=== PATIENT | female | born 1930 | race Caucasian/White ===

== ENCOUNTER 2016-12-11 15:15 | Outpatient (CLI) | payer MEDICARE ==
[~2016-12-11 15:15] MED LIST: AMLO5TAB PO; AMLODIPINE10 MG PO; BENADRYL 25MG C25 MG PO; BYSTOLIC10 MG PO; CALCITRIOL 00.25 MCG PO; CALCIUM CARBON600 MG PO; CITALOPRAM10 MG PO; DIOVAN160 MG PO; DIOVAN320 MG PO; DIOVAN40 MG PO; DOXAZOSIN4 MG PO; FUROSEMIDE40 MG PO; KAPIDEX60 MG PO; LIPITOR40 MG PO; MEDI-FIRST NON325 MG PO; OCUVITE LUTEIN1 CA1 PO; TYLENOL 8 HOUR650 MG PO; VITAMIN D 90 MG1 TA1 PO; VITAMIN D31000 IU PO; VITAMIN D50000 I1 PO
[2016-12-11 15:53] LABS: HEMOGLOBIN 9.4 g/dL (12.2-16.2)
[2016-12-11 16:10] VITALS: BP 160/58
[2016-12-11 17:46] LABS: GFR (ESTIMATED) 15 ML/MIN (59-)
[2016-12-13 06:38] LABS: Iron 67 ug/dL (27-139); Iron Saturation 31 % (15-55); UIBC 150 ug/dL (118-369)
== END 2016-12-11 16:24 | disposition home or self-care (01) ==
LOC: COP 15:15
PROVIDERS: Hospitalist
DX: N18.4 Chronic kidney disease, stage 4 (severe) (principal); D63.1 Anemia in chronic kidney disease
CPT/HCPCS: J0885

== ENCOUNTER → 2017-01-01 | Outpatient (CLI) | payer MEDICARE ==
[2017-01-01 15:30] VITALS: BP 163/70
[2017-01-01 15:40] LABS: GFR (ESTIMATED) 12 ML/MIN (59-)
== END ==
LOC: COP 15:00
PROVIDERS: Hospitalist
DX: N18.4 Chronic kidney disease, stage 4 (severe) (principal); D63.1 Anemia in chronic kidney disease
CPT/HCPCS: J0885

== ENCOUNTER 2017-01-27 15:14 | Outpatient (CLI) | payer MEDICARE ==
[2017-01-27 15:40] LABS: LYMPH # 0.9 K/mm3 (0.7-4.5); LYMPH % 26.3 % (10-50.0)
[2017-01-27 15:44] LABS: HEMOGLOBIN 11.2 g/dL (12.2-16.2)
[2017-01-27 15:50] LABS: URINE BILIRUBIN - DIPSTICK NEGATIVE (NEG); URINE BLOOD NEGATIVE (NEG)
[2017-01-27 16:17] LABS: BUN 55 mg/dL (7-18)
[2017-01-27 16:18] LABS: GFR (ESTIMATED) 15 ML/MIN (59-)
[2017-01-29 08:40] LABS: Iron 58 ug/dL (27-139); Iron Saturation 25 % (15-55); UIBC 173 ug/dL (118-369)
== END 2017-01-27 16:20 | disposition home or self-care (01) ==
LOC: COP 15:14
PROVIDERS: Hospitalist
DX: N18.4 Chronic kidney disease, stage 4 (severe) (principal); D63.1 Anemia in chronic kidney disease; N25.81 Secondary hyperparathyroidism of renal origin; R82.90 Unspecified abnormal findings in urine

== ENCOUNTER 2017-07-20 11:40 | Outpatient (CLI) | payer MEDICARE ==
[2017-07-20 12:04] LABS: GFR (ESTIMATED) 18 ML/MIN (59-)
[2017-07-20 12:20] VITALS: BP 179/58
== END 2017-07-20 12:40 | disposition hospice, home (50) ==
LOC: COP 11:40
PROVIDERS: Hospitalist
DX: N18.4 Chronic kidney disease, stage 4 (severe) (principal); D63.1 Anemia in chronic kidney disease
CPT/HCPCS: J0885

== ENCOUNTER 2017-08-03 09:30 | Outpatient (CLI) | payer MEDICARE ==
[2017-08-03 09:44] LABS: HEMOGLOBIN 10.5 g/dL (12.2-16.2)
[2017-08-03 10:02] VITALS: BP 175/68
[2017-08-03 10:16] LABS: GFR (ESTIMATED) 16 ML/MIN (59-)
[2017-08-04 09:38] LABS: Iron 63 ug/dL (27-139); Iron Saturation 28 % (15-55); UIBC 166 ug/dL (118-369)
== END 2017-08-03 10:25 | disposition home or self-care (01) ==
LOC: COP 09:30
PROVIDERS: Hospitalist
DX: N18.4 Chronic kidney disease, stage 4 (severe) (principal); D63.1 Anemia in chronic kidney disease
CPT/HCPCS: J0885

== ENCOUNTER 2017-08-17 09:40 | Outpatient (CLI) | payer MEDICARE ==
[2017-08-17 09:59] LABS: HEMOGLOBIN 10.8 g/dL (12.2-16.2)
[2017-08-17 10:09] LABS: GFR (ESTIMATED) 15 ML/MIN (59-)
[2017-08-17 10:23] VITALS: BP 174/70
== END 2017-08-17 10:44 | disposition home or self-care (01) ==
LOC: COP 09:40
PROVIDERS: Hospitalist
DX: N18.4 Chronic kidney disease, stage 4 (severe) (principal); D63.1 Anemia in chronic kidney disease

== ENCOUNTER 2017-09-28 09:30 | Outpatient (CLI) | payer MEDICARE ==
[2017-09-28 09:42] LABS: HEMOGLOBIN 10.3 g/dL (12.2-16.2)
[2017-09-28 09:47] LABS: GFR (ESTIMATED) 14 ML/MIN (59-)
[2017-09-28 10:02] VITALS: BP 170/79
== END 2017-09-28 10:19 | disposition home or self-care (01) ==
LOC: COP 09:30
PROVIDERS: Internal Medicine Nephrology
DX: N18.4 Chronic kidney disease, stage 4 (severe) (principal); D63.1 Anemia in chronic kidney disease
CPT/HCPCS: J0885

== ENCOUNTER 2017-10-12 09:40 | Outpatient (CLI) | payer MEDICARE ==
[2017-10-12 10:16] LABS: HEMOGLOBIN 10.5 g/dL (12.2-16.2)
[2017-10-12 10:40] VITALS: BP 160/62
[2017-10-12 10:42] LABS: GFR (ESTIMATED) 16 ML/MIN (59-)
[2017-10-13 08:53] LABS: Iron 46 ug/dL (27-139); Iron Saturation 22 % (15-55); UIBC 162 ug/dL (118-369)
== END 2017-10-12 10:55 | disposition home or self-care (01) ==
LOC: COP 09:40
PROVIDERS: Hospitalist
DX: N18.4 Chronic kidney disease, stage 4 (severe) (principal); D63.1 Anemia in chronic kidney disease
CPT/HCPCS: J0885